=== PATIENT | male | born 1985 | race African-American/Black ===

== ENCOUNTER 2024-11-29 03:18 | Emergency (ER) | payer OTHER ==
[~2024-11-29] VITALS: Ht 177.8 cm; Wt 77.0 kg
[2024-11-29 03:19] VITALS: BP 133/62; PULSE 118; RESP 16; TEMP 37.1; O2SAT 98
[2024-11-29] MEDS ORDERED: SODIUM CHLORIDE 0.9% 1,000 ML IV ONE (03:30)
[2024-11-29] MEDS ORDERED: LORAZEPAM 1MG TABLET PO ONE (03:45)
== END 2024-11-29 03:37 | disposition left against medical advice (07) ==
LOC: ER 03:25
DX: R07.9 Chest pain, unspecified (principal); F12.90 Cannabis use, unspecified, uncomplicated
CPT/HCPCS: 99283; J7030

== ENCOUNTER 2024-11-29 04:26 | Emergency (ER) | payer MEDICAID, OTHER | END 2024-11-29 04:43 | disposition left against medical advice (07) | LOC: ER 04:26 | DX: Z13.30 Encounter for screening examination for mental health and behavioral disorders, unspecified (principal); Z53.21 Procedure and treatment not carried out due to patient leaving prior to being seen by health care provider ==